=== PATIENT | female | born 1990 | race American Indian/Alaskan Native ===

== ENCOUNTER 2017-05-31 10:09 | Emergency (ER) | payer OTHER ==
[2017-05-31 10:16] VITALS: BP 121/71
[2017-05-31] MEDS ORDERED: AUGMENTIN 875 MG PO ONE (11:32)
[2017-05-31] MEDS ORDERED: MOTRIN PO ONE (11:32)
[2017-05-31] MEDS ORDERED: RABAVERT RABIES VACCINE(PCEC) IM ONE (11:32)
[2017-05-31] MEDS ORDERED: hyperRAB S/D IM ONE (11:32)
--- NOTE | 2017-05-31 11:46 | Emergency Department Report ---
ED Animal Bite HPI - General Chief Complaint: Animal Bite Stated Complaint: BITTEN BY A BAT Time Seen by Provider: 05/31/17 11:22 Source: patient Mode of arrival: Ambulatory Limitations: No Limitations - History of Present Illness Complaint: animal bite - Related Data Previous Rx's Medication Instructions Recorded Last Taken Type HYDROcodone/APAP 5-325 [[place] 1 each PO Q6HR PRN #14 tablet 03/17/16 Unknown Rx 5/325] Nitrofurantoin [place]/M-Cryst 100 mg PO Q12HR #10 capsule 03/17/16 Unknown Rx [Macrobid CAP] Allergies Allergy/AdvReac Type Severity Reaction Status Date / Time No Known Allergies Allergy Verified 03/17/16 05:30 ED Review of Systems ROS: Stated complaint: BITTEN BY A BAT Other details as noted in HPI ED Past Medical Hx - Past Medical History Previous Medical History?: Yes Hx Psychiatric Treatment: Yes (depression and anxiety) Additional medical history: endometriosis - Surgical History Past Surgical History?: Yes Additional Surgical History: endometriosis. hernia repair - Social History Smoking Status: Never Smoker Substance Use Type: Alcohol - Medications Home Medications: Home Medications Medication Instructions Recorded Confirmed Last Taken Type HYDROcodone/APAP 5-325 [[place] 1 each PO Q6HR PRN #14 tablet 03/17/16 Unknown Rx 5/325] Nitrofurantoin [place]/M-Cryst 100 mg PO Q12HR #10 capsule 03/17/16 Unknown Rx [Macrobid CAP] ED Physical Exam - General Limitations: No Limitations ED Course Vital Signs 05/31/17 10:14 Temperature 98 F Pulse Rate 63 Respiratory 16 Rate Blood Pressure 121/71 O2 Sat by Pulse 100 Oximetry Critical care attestation.: If time is entered above; I have spent that time in minutes in the direct care of this critically ill patient, excluding procedure time. ED Disposition Condition: Stable Referrals: PRIMARY CARE, [Primary Care Provider] - 3-5 Days
--- NOTE | 2017-05-31 14:19 | Emergency Department Report ---
Entered by PARVEEN MG, acting as scribe for JUAN ANTONIO LLAMAS PA. ED Animal Bite HPI - General Chief Complaint: Animal Bite Stated Complaint: BITTEN BY A BAT Time Seen by Provider: 05/31/17 11:28 Source: patient Mode of arrival: Ambulatory Limitations: No Limitations - History of Present Illness Initial Comments: 26 year old female nontoxic, well nourished in appearance, no acute signs of distress, present to ED with mother, c/o animal bite around 500AM this morning . Patient reports her cat caught a bat, when she picked up the bat, it bit her right ring finger. Patient denies active bleeding, numbness, tingling, headache, chest pain, or SOB. Patient denies PMHx, smoking, or but, PSHx of endometriosis. Tetanus shot UTD in 2016. NKDA. CAT Complaint: animal bite -: This morning (500) Location: other (right ring finger) Right: Hand (distal pad ring finger) Animal: bat Description: wild animal Mechanism: bite Pain Description: constant Severity scale (0 -10): 4 Context: unprovoked Associated Symptoms: none. denies: bleeding, fever, chills, loss of consciousness, cough, headache, diaphoresis, shortness of breath Treatments Prior to Arrival: wound dressing(s) - Related Data Patient Tetanus UTD: Yes (in 2015) Previous Rx's Medication Instructions Recorded Last Taken Type HYDROcodone/APAP 5-325 [[place] 1 each PO Q6HR PRN #14 tablet 03/17/16 Unknown Rx 5/325] Nitrofurantoin [place]/M-Cryst 100 mg PO Q12HR #10 capsule 03/17/16 Unknown Rx [Macrobid CAP] Amoxicillin/K Clav Tab [Augmentin 1 tab PO Q12HR #14 tab 05/31/17 Unknown Rx 875 mg] Ibuprofen [Motrin] 600 mg PO Q8H PRN #30 tablet 05/31/17 Unknown Rx Allergies Allergy/AdvReac Type Severity Reaction Status Date / Time No Known Allergies Allergy Verified 03/17/16 05:30 ED Review of Systems Comment: All other systems reviewed and negative Constitutional: denies: chills, fever Respiratory: denies: cough, shortness of breath, wheezing Cardiovascular: denies: chest pain, palpitations Gastrointestinal: denies: abdominal pain, nausea, vomiting, diarrhea Musculoskeletal: denies: back pain, joint swelling, arthralgia Skin: denies: rash, lesions Neurological: denies: headache, weakness, numbness, paresthesias ED Past Medical Hx - Past Medical History Previous Medical History?: Yes Hx Psychiatric Treatment: Yes (depression and anxiety) Additional medical history: endometriosis - Surgical History Past Surgical History?: Yes Additional Surgical History: endometriosis. hernia repair - Social History Smoking Status: Never Smoker Substance Use Type: Alcohol - Medications Home Medications: Home Medications Medication Instructions Recorded Confirmed Last Taken Type HYDROcodone/APAP 5-325 [[place] 1 each PO Q6HR PRN #14 tablet 03/17/16 Unknown Rx 5/325] Nitrofurantoin [place]/M-Cryst 100 mg PO Q12HR #10 capsule 03/17/16 Unknown Rx [Macrobid CAP] Amoxicillin/K Clav Tab [Augmentin 1 tab PO Q12HR #14 tab 05/31/17 Unknown Rx 875 mg] Ibuprofen [Motrin] 600 mg PO Q8H PRN #30 tablet 05/31/17 Unknown Rx ED Physical Exam - General Limitations: No Limitations General appearance: alert, in no apparent distress - Head Head exam: Present: atraumatic, normocephalic, normal inspection - Eye Eye exam: Present: normal appearance, PERRL, EOMI - ENT ENT exam: Present: mucous membranes moist - Neck Neck exam: Present: normal inspection, full ROM. Absent: tenderness, meningismus, lymphadenopathy - Respiratory Respiratory exam: Present: normal lung sounds bilaterally. Absent: respiratory distress, wheezes, rales, rhonchi, stridor - Cardiovascular Cardiovascular Exam: Present: regular rate, normal rhythm. Absent: systolic murmur, diastolic murmur, rubs, gallop - GI/Abdominal GI/Abdominal exam: Present: soft, normal bowel sounds. Absent: distended, tenderness, guarding, rebound, rigid, diminished bowel sounds - Extremities Exam Extremities exam: Present: normal inspection, full ROM, normal capillary refill. Absent: tenderness, pedal edema, joint swelling - Back Exam Back exam: Present: normal inspection, full ROM. Absent: tenderness - Neurological Exam Neurological exam: Present: alert, oriented X3, normal gait - Psychiatric Psychiatric exam: Present: normal affect, normal mood - Skin Skin exam: Present: warm, dry, intact, normal color, other (laceration). Absent : rash ED Course Vital Signs 05/31/17 10:14 Temperature 98 F Pulse Rate 63 Respiratory 16 Rate Blood Pressure 121/71 O2 Sat by Pulse 100 Oximetry Critical care attestation.: A/P: Bat bite, animal bite 1-tetanus vaccination up-to-date as of 2015 as per patient 2-rabies vaccine given left deltoid, immunoglobulin weight-based dose given right upper extremity I infiltrated wound area at distal right ring finger finger pad is much immunoglobulin as possible and injected the remainder in the right upper deltoid and triceps muscle region 3-Augmentin 7 day course, Motrin when necessary 4- I gave patient specific dates and schedule of rabies vaccination per up-to- [email or web address] and CDC recommendations. I explained to her the importance of following the schedule to achieve immunity, patient stated she understood the importance of receiving vaccination. Rabies Vacine Schedule Postexposure vaccination: All postexposure treatment should begin with immediate cleansing of the wound with soap and water Persons not previously immunized as above: Immunocompetent: IM: 4 doses (1 mL each) on days 0, 3, 7, 14 (ACIP [Lalitharecht 2009]). Day 0: Thursday05/31/2017: Given Day 3: Thursday06/03/2107: pending Day 7: Thursday06/07/2017: pending Day 14: Thursday06/15/2017: pending ED Disposition Clinical Impression: Animal bite, Need for rabies vaccination, Need for post exposure prophylaxis for rabies Bat bite of finger Qualifiers: Encounter type: initial encounter Qualified Code(s): S61.259A - Open bite of unspecified finger without damage to nail, initial encounter; W55.81XA - Bitten by other mammals, initial encounter Disposition: DC-01 TO HOME OR SELFCARE Is pt being admited?: No Does the pt Need Aspirin: No Condition: Stable Instructions: Rabies Vaccine (Injection), Rabies Immune Globulin (Injection), Animal Bite (ED) Additional Instructions: Rabies Vacine Schedule IPostexposure vaccination: All postexposure treatment should begin with immediate cleansing of the wound with soap and water Persons not previously immunized as above: Immunocompetent: IM: 4 doses (1 mL each) on days 0, 3, 7, 14 (ACIP [Lalitharecsalvador 2009]). Day 0: Thursday05/31/2017: Given Day 3: Thursday06/03/2107: pending Day 7: Thursday06/07/2017: pending Day 14: Thursday06/15/2017: pending Prescriptions: Amoxicillin/K Clav Tab [Augmentin 875 mg] 1 tab PO Q12HR #14 tab Ibuprofen [Motrin] 600 mg PO Q8H PRN #30 tablet PRN Reason: Pain Referrals: [place] DUMONT MD [Staff Physician] - 3-5 Days Forms: Accompanied Note, Work/School Release Form(ED) Time of Disposition: 12:36 This documentation as recorded by the HARITHA ricks PEARL,accurately reflects the service I personally performed and the decisions made by ,JUAN ANTONIO LLAMAS PA.
== END 2017-05-31 12:40 | disposition home or self-care (01) ==
LOC: ED 10:09
DX: S61.254A Open bite of right ring finger without damage to nail, initial encounter (principal); Z23 Encounter for immunization; F32.9 Major depressive disorder, single episode, unspecified; F41.9 Anxiety disorder, unspecified; W55.81XA Bitten by other mammals, initial encounter; Y93.89 Activity, other specified; Y99.9 Unspecified external cause status; Y92.89 Other specified places as the place of occurrence of the external cause
CPT/HCPCS: 90375; 90675; 96372

== ENCOUNTER 2017-06-02 17:18 | Emergency (ER) | payer OTHER ==
[2017-06-02 17:28] VITALS: BP 119/70
[2017-06-02] MEDS ORDERED: RABAVERT RABIES VACCINE(PCEC) IM ONE (17:31)
--- NOTE | 2017-06-02 17:36 | Emergency Department Report ---
ED General Adult HPI - General Chief complaint: Medical Clearance Stated complaint: DAY 3 RABIES VACCINE Time Seen by Provider: 06/02/17 17:31 Source: patient Mode of arrival: Ambulatory Limitations: No Limitations - History of Present Illness Initial comments: PT states she is here for her rabies shot. PT states she was bitten by a bat three days ago. PT states she was bitten on her R ring finger. PT states you can not see the bite. MD Complaint: rabies vaccine -: Sudden Consistency: now resolved (bite has healed ) Associated Symptoms: denies other symptoms. denies: fever/chills, nausea/ vomiting, rash - Related Data Previous Rx's Medication Instructions Recorded Last Taken Type HYDROcodone/APAP 5-325 [[place] 1 each PO Q6HR PRN #14 tablet 03/17/16 Unknown Rx 5/325] Nitrofurantoin [place]/M-Cryst 100 mg PO Q12HR #10 capsule 03/17/16 Unknown Rx [Macrobid CAP] Amoxicillin/K Clav Tab [Augmentin 1 tab PO Q12HR #14 tab 05/31/17 Unknown Rx 875 mg] Ibuprofen [Motrin] 600 mg PO Q8H PRN #30 tablet 05/31/17 Unknown Rx Allergies Allergy/AdvReac Type Severity Reaction Status Date / Time No Known Allergies Allergy Verified 03/17/16 05:30 ED Review of Systems ROS: Stated complaint: DAY 3 RABIES VACCINE Other details as noted in HPI Comment: All other systems reviewed and negative Constitutional: denies: fever Musculoskeletal: other (no finger swelling or pain ). denies: joint swelling Skin: denies: change in color ED Past Medical Hx - Past Medical History Previous Medical History?: Yes Hx Psychiatric Treatment: Yes (depression and anxiety) Additional medical history: endometriosis - Surgical History Past Surgical History?: Yes Additional Surgical History: endometriosis. hernia repair - Social History Smoking Status: Never Smoker Substance Use Type: Alcohol - Medications Home Medications: Home Medications Medication Instructions Recorded Confirmed Last Taken Type HYDROcodone/APAP 5-325 [[place] 1 each PO Q6HR PRN #14 tablet 03/17/16 Unknown Rx 5/325] Nitrofurantoin [place]/M-Cryst 100 mg PO Q12HR #10 capsule 03/17/16 Unknown Rx [Macrobid CAP] Amoxicillin/K Clav Tab [Augmentin 1 tab PO Q12HR #14 tab 05/31/17 Unknown Rx 875 mg] Ibuprofen [Motrin] 600 mg PO Q8H PRN #30 tablet 05/31/17 Unknown Rx ED Physical Exam - General Limitations: No Limitations General appearance: alert, in no apparent distress - Head Head exam: Present: atraumatic, normocephalic, normal inspection - Eye Eye exam: Present: normal appearance, PERRL, EOMI. Absent: conjunctival injection - ENT ENT exam: Present: normal exam, mucous membranes moist, normal external ear exam - Neck Neck exam: Present: normal inspection, full ROM - Respiratory Respiratory exam: Absent: respiratory distress, accessory muscle use - Extremities Exam Extremities exam: Present: normal inspection, full ROM, normal capillary refill. Absent: tenderness - Back Exam Back exam: Present: normal inspection, full ROM - Neurological Exam Neurological exam: Present: alert, oriented X3 - Psychiatric Psychiatric exam: Present: normal affect, normal mood - Skin Skin exam: Present: warm, dry, intact, normal color. Absent: rash, erythema ED Course Vital Signs 06/02/17 17:25 Temperature 98.2 F Pulse Rate 104 H Respiratory 16 Rate Blood Pressure 119/70 O2 Sat by Pulse 100 Oximetry - Reevaluation(s) Reevaluation #1: 06/02/17 17:35 PT aware of plan of care. Pt has no questions at this time. Reevaluation #2: 06/02/17 18:20 Rabies vaccine given - Pulse Oximetry Interpretation Digit-Finger Initial Pulse Oximetry Readin Actions Taken: none ED Medical Decision Making - Differential Diagnosis bat bite, rabies vaccine, cellulitis Critical Care Time: No Critical care attestation.: If time is entered above; I have spent that time in minutes in the direct care of this critically ill patient, excluding procedure time. ED Disposition Clinical Impression: Need for rabies vaccination Disposition: DC-01 TO HOME OR SELFCARE Is pt being admited?: No Does the pt Need Aspirin: No Condition: Stable Instructions: Rabies Vaccine (Injection), Rabies (ED) Additional Instructions: Continue with rabies series as prescribed Next vaccine should be due on 06/07/17 Referrals: PRIMARY CARE, [Primary Care Provider] - 3-5 Days DE SWAIN MD [Staff Physician] - 3-5 Days [facility] Depart [Outside] - 3-5 Days Forms: Work/School Release Form(ED) Time of Disposition: :38
== END 2017-06-02 18:21 | disposition home or self-care (01) ==
LOC: ED 17:18
DX: Z23 Encounter for immunization (principal); F32.9 Major depressive disorder, single episode, unspecified; F41.9 Anxiety disorder, unspecified
CPT/HCPCS: 90471; 90675

== ENCOUNTER 2017-06-07 16:05 | Emergency (ER) | payer OTHER ==
[2017-06-07 16:14] VITALS: BP 128/70
[2017-06-07] MEDS ORDERED: RABAVERT RABIES VACCINE(PCEC) IM ONE (16:14)
--- NOTE | 2017-06-07 16:53 | Emergency Department Report ---
Chief Complaint: Recheck/Abnormal Lab/Rx Stated Complaint: RABIES SHOT Time Seen by Provider: 06/07/17 16:12 - HPI History of Present Illness: Pt presents to ED for 3rd rabies vaccine. she reports doing well with no problems - ROS Review of Systems: Denies all systems - Exam Vital Signs: Vital Signs 06/07/17 16:12 Temperature 97.7 F Pulse Rate 77 Respiratory 17 Rate Blood Pressure 128/70 O2 Sat by Pulse 100 Oximetry Physical Exam: GENERAL: Alert and oriented x3, no apparent distress, Normal Gait, atraumatic. HEAD: Head is normocephalic and a-traumatic. LUNGS: Symetrical with respiration, No wheezing, no rales or crackles, CTAB. HEART: S1, S2 present, regular rate and rhythm without murmur, no rubs, no gallops. SKIN: Warm and dry, No lesions, No ulceration or induration present. Initial bite olim[place]ia of the index MSE screening note: Focused history and physical exam performed. Due to findings the following was ordered: ED Medical Decision Making - Medical Decision Making Pt here for rabies vaccine vaccine administered Discussed to return for last schedule as discussed. VSS no acute distress ED Disposition for MSE Clinical Impression: Need for post exposure prophylaxis for rabies Disposition: DC-01 TO HOME OR SELFCARE Is pt being admited?: No Does the pt Need Aspirin: No Condition: Stable Instructions: Rabies Vaccine (Injection) Referrals: PRIMARY CARE, [Primary Care Provider] - 3-5 Days Forms: Work/School Release Form(ED) Time of Disposition: 16:50
== END 2017-06-07 17:09 | disposition home or self-care (01) ==
LOC: ED 16:05
DX: Z23 Encounter for immunization (principal)
CPT/HCPCS: 90471; 90675; 96372; 99282